=== PATIENT | male | born 1980 | race Caucasian/White ===

== ENCOUNTER 2023-11-18 16:38 | Emergency (ER) | payer SELFPAY ==
[2023-11-18] MEDS ORDERED: Acetaminophen/oxyCODONE 325-5 MG Tab PO ONE (19:39)
[2023-11-18] MEDS ORDERED: Lidocaine 1% PF 2 ML SDV INJECT ONE (19:39)
[2023-11-18] MEDS ORDERED: Sulfamethoxazole/Trimethoprim 800-160 MG Tab PO ONE (19:39)
== END 2023-11-18 20:27 | disposition home or self-care (01) ==
LOC: MW.ED 16:38
DX: L02.416 Cutaneous abscess of left lower limb (principal)
CPT/HCPCS: 10060; 99282; A9270; 10061; 99283; J3490